=== PATIENT | male | born 1940 ===

== ENCOUNTER 2019-12-22 10:49 | Emergency (ER) | payer SELFPAY ==
[~2019-12-22] VITALS: Ht 172.7 cm; Wt 70.0 kg
[2019-12-22 10:57] VITALS: BP 136/72
[2019-12-22 12:05] LABS: CLARITY,URINE CLEAR (Clear); COLOR,URINE YELLOW (Yellow); GLUCOSE, URINE NEGATIVE (Neg); KETONES,URINE 15 mg/dl (Neg); LEUKOCYTE ESTERASE ,URINE NEGATIVE (Neg); NITRITES, URINE NEGATIVE (Neg); OCCULT BLOOD,URINE NEGATIVE (Neg); PROTEIN,URINE TRACE mg/dl (Neg)
[2019-12-22 12:15] LABS: UA COLLECTION TYPE CLN CATCH MIDSTREAM
[2019-12-22 12:24] LABS: MUCUS STRANDS MANY /LPF (Neg); SQUAMOUS EPITHELIAL CELL,UR FEW /LPF (FEW)
[2019-12-22 12:26] LABS: FINE GRANULAR CAST 0-3 /LPF (NEGATIVE)
[2019-12-22 12:27] LABS: CAL OXALATE CRYSTALS 4+ /HPF (NEGATIVE)
[2019-12-22 12:30] LABS: BACTERIA,URINE FEW /HPF (Neg); RBC,URINE NONE SEEN /HPF (0-2); WBC,URINE 0-4 /HPF (0-4)
--- NOTE | 2019-12-22 13:21 | NUR ---
PT NOT IN ROOM. HAD ALREADY ATTEMPTED TO LEAVE AND STOPPED BY PROVIDER.
== END 2019-12-22 13:23 | disposition left against medical advice (07) ==
LOC: ER 10:50
DX: N50.811 Right testicular pain (principal); I86.1 Scrotal varices
CPT/HCPCS: 76870; 81001; 99284